=== PATIENT | female | born 1995 | race Caucasian/White ===

== ENCOUNTER 2019-06-19 13:08 | Outpatient (CLI) | payer MEDICAID, SELFPAY ==
--- NOTE | 2019-06-19 | US_ITS ---
WS: [id number] EARLY OBSTETRICAL ULTRASOUND (<14 WEEKS). HISTORY: SUPERVISION, NORMAL PREG, MULTIPAROUS COMPARISON: None available. Single intrauterine gestational sac is identified. Cardiac activity cannot be detected. [place]-rump le ngth measures 0.4 cm which corresponds to a gestation of 6w0d. Normal-appearing yolk sac and amnion d emonstrated. No subchorionic hemorrhage. No free fluid. Normal size ovaries with no mass. Cervix is closed and normal length of 3.6 cm. US/US OB <=14 wk fetus w transvag IMPRESSION: 1. Intrauterine gestational sac with crown-rump length corresponding to a gest ation of 6 weeks and 0 days. 2. No cardiac activity identified at this time. May be due to undetectable hea rt rate due to early gestational age or embryonic demise. Recommend follow-up u ltrasound in one week.
== END 2019-06-19 13:09 | disposition home or self-care (01) ==
PROVIDERS: Family Provider Family Medicine; PCP Family Medicine; Visit Provider Family Medicine
DX: Z34.81 Encounter for supervision of other normal pregnancy, first trimester (principal); Z3A.01 Less than 8 weeks gestation of pregnancy
CPT/HCPCS: 76801; 76817

== ENCOUNTER 2019-06-26 10:12 | Outpatient (CLI) | payer SELFPAY ==
--- NOTE | 2019-06-26 | US_ITS ---
WS: [id number] ULTRASOUND EARLY TECHNIQUE: Transabdominal sonography of the pelvis was performed. Followed by transvaginal sonography to better evaluate the uterus and ovaries. CLINICAL INFORMATION: ABSENT HEART TONES LAST WEEK LMP: 05/08/2019 Beta hCG: Unknown. COMPARISON: Ultrasound June 19, 2019 FINDINGS: UTERUS AND GESTATIONAL SAC Intrauterine gestations: Intrauterine gestational sac with Estimated gestational age: 6w3d [place] rump length (CRL): 0.6 cm. No cardiac activity visualized Subchorionic hemorrhage: None. OVARIES Right ovary: Normal. Left ovary: Normal. FREE FLUID None. US/US OB <=14 wk fetus w transvag IMPRESSION: 1. Gestational sac measuring 6 weeks 3 days with an no heart tones visualized. Recommend short interval follow-up to evaluate viability.
== END 2019-06-26 10:13 | disposition home or self-care (01) ==
LOC: RADWPI 10:15
PROVIDERS: Family Provider Family Medicine; PCP Family Medicine; Visit Provider Family Medicine
DX: O36.8310 Maternal care for abnormalities of the fetal heart rate or rhythm, first trimester, not applicable or unspecified (principal)
CPT/HCPCS: 76801; 76817

== ENCOUNTER 2020-03-11 07:48 | Outpatient (CLI) | payer MEDICAID, SELFPAY ==
--- NOTE | 2020-03-11 07:53 | US_ITS ---
WS: [id number] ULTRASOUND EARLY TECHNIQUE: Transabdominal sonography of the pelvis was performed. Followed by transvaginal sonography to better evaluate the uterus and ovaries. CLINICAL INFORMATION: SUPERVISION NORMAL ,MULTIPAROUS LMP: 12/19/2019 Beta hCG: Unknown. COMPARISON: None. FINDINGS: Cervix measures 4.3 cm UTERUS AND GESTATIONAL SAC Intrauterine gestations: Estimated gestational age: 11w6d. Estimated delivery September 24, 2020 [place] rump length (CRL): 5.2 cm. heart motion: 164 BPM. Subchorionic hemorrhage: None. OVARIES Right ovary: Normal. Left ovary: Normal. FREE FLUID None. US/US OB <= 14 weeks fetus [id number] IMPRESSION: 1. Single live intrauterine with cardiac activity. 2. Estimated gestational age; 11w6d. Estimated delivery September 24, 2020 3. Normal ovaries
== END 2020-03-11 07:49 | disposition home or self-care (01) ==
PROVIDERS: PCP Family Medicine; Visit Provider Family Medicine
DX: Z34.81 Encounter for supervision of other normal pregnancy, first trimester (principal); Z3A.11 11 weeks gestation of pregnancy
CPT/HCPCS: 76801

== ENCOUNTER 2020-05-03 10:45 | Outpatient (CLI) | payer MEDICAID, SELFPAY ==
--- NOTE | 2020-05-03 10:51 | US_ITS ---
WS: [id number] OBSTETRICAL ULTRASOUND COMPLETE HISTORY: ANATOMY COMPARISON: 03/11/2020 Single intrauterine gestation in variable presentation. Cervix is Closed and normal length. Cervical length is 4.9 cm. Normal amount of amniotic fluid surrounds the fetus. Placenta: Anterior, no previa or abruption. Placenta grade 1 Heart: 164 BPM. 4 chambers are identified. The valve plane and the septum are not visualized well. Th e RIGHT and LEFT ventricular outflow tracts appear intact. Anatomy: Intracranial structures and spine are normal. kidneys, stomach and urinary bladd er are unremarkable. Abdominal wall, three-vessel cord and cord insertion site are normal. 4 extremities are present. profile: Unremarkable. Gender: L. measurements: BPD = 4.5 cm = 19w3d HC = 16.9 cm = 19w4d AC = 14.3 cm = 19w4d FL = 3.1 cm = 19w3d EFW: 298 g. Biometry is internally concordant. AGA by ultrasound: 19w4d JOHN by ultrasound: 09/23/2020 US/US OB >= 14 weeks fetus [id number] IMPRESSION: 1. Single intrauterine gestation of 19w4d with an JOHN of 09/23/2020. Appropria te growth since the prior ultrasound. 2. Inadequate evaluation of four-chamber heart. Repeat imaging with attention to the valve plane and the intra-atrial and intraventricular septa recommended. The outflow tracts are normal.
== END 2020-05-03 10:46 | disposition home or self-care (01) ==
LOC: RAD 10:46
PROVIDERS: PCP Family Medicine; Visit Provider Family Medicine
DX: Z36.89 Encounter for other specified antenatal screening (principal); Z3A.19 19 weeks gestation of pregnancy
CPT/HCPCS: 76805

== ENCOUNTER 2020-05-20 14:56 | Outpatient (CLI) | payer MEDICAID, SELFPAY ==
--- NOTE | 2020-05-20 15:09 | US_ITS ---
WS: [id number] ULTRASOUND OB LIMITED TECHNIQUE: Limited ultrasound examination of the fetus. CLINICAL INFORMATION: FOLLOW UP ON HEART COMPARISON: None. FINDINGS: Cervix measures 4.3 cm Single interuterine gestation. presentation is cephalic Placental location is anterior. Placenta grade: 1 Anatomy: Normal 4 chamber view, left ventricular outflow tract, and right ventricular outflow tract s een today. Echogenic foci seen within the left ventricle [place] [id number] IMPRESSION: 1. Normal four-chamber heart view today. Normal ventricular outflow tracts. 2. Echogenic foci seen within the left ventricle. Recommend correlation with m aternal risk factors.
== END 2020-05-20 14:57 | disposition home or self-care (01) ==
LOC: RAD 14:57
PROVIDERS: PCP Family Medicine; Visit Provider Family Medicine
DX: Z34.80 Encounter for supervision of other normal pregnancy, unspecified trimester (principal)
CPT/HCPCS: 76816

== ENCOUNTER 2020-09-09 10:49 | Outpatient (CLI) | payer MEDICAID, SELFPAY ==
--- NOTE | 2020-09-09 10:55 | US_ITS ---
WS: [id number] ULTRASOUND OB LIMITED TECHNIQUE: Limited ultrasound examination of the fetus. CLINICAL INFORMATION: SMALL FOR GESTATION AGE/ALEXY/EFW COMPARISON: May 20, 2020 FINDINGS: Cervix measures 4.6 cm Single interuterine gestation. Placental location is anterior. Placenta grade: 2 heart rate 157 BPM. Anatomy: BDP: 9.2 cm = 37w1d HC: 32.8 cm = 37w2d AC: 35.2 cm = 39w1d FEMUR LENGTH: 7.4 cm = 37w6d Estimated weight: 3468 g EGA by ultrasound: 37w6d JOHN by ultrasound: 09/24/2020 [place] [id number] IMPRESSION: 1. Single intrauterine gestation with cervix measuring 4.6 cm. Cervix is long and closed. 2. Gestational age 37 weeks 6 days with estimated delivery September 24, 2020. 3. Normal amniotic fluid volume. ALEXY 10.2 CM, greater than 5th and below the m edian percentile 4. growth parameters within normal limits. 5. weight 7 lbs. 10 oz. 86 percentile based on gestational age.
== END 2020-09-09 10:50 | disposition home or self-care (01) ==
LOC: US 10:52
PROVIDERS: PCP Family Medicine; Visit Provider Family Medicine
DX: Z36.4 Encounter for antenatal screening for fetal growth retardation (principal); Z3A.37 37 weeks gestation of pregnancy
CPT/HCPCS: 76816

== ENCOUNTER 2020-09-19 03:37 | Inpatient (IN) | payer MEDICAID, SELFPAY ==
[2020-09-19] VITALS (83 sets, daily range): BP systolic 94–148; BP diastolic 51–96; PULSE 82–139; RESP 17–18; TEMP 36.2–37.2; O2SAT 94–99; BMI 26.7
--- NOTE | 2020-09-19 03:33 | PC.NURSE ---
ARMAAN Casarez made aware by this RN of [facility] in active labor to floor. AR RN
[2020-09-19] MEDS: ampicillin 2,000 MG in sodium chloride 0.9% (plus) 50 ML 100 MG IV (04:00)
[2020-09-19] MEDS: dextrose 5%-lactated ringers 1,000 ML 125 ML IV ×2 (04:01→11:06)
[2020-09-19] MEDS: butorphanol 2 mg/mL SDV 1 mL 1 MG IVP (04:01)
[2020-09-19 04:26] LABS: Basophils % 0.3 %; Eosinophils % 0.2 %; Hematocrit 36.4 % (37.0-47.0); Hemoglobin 11.8 g/dL (11.5-15.3); Lymphocytes # 1.2 10^3/uL (0.8-4.8); Lymphocytes % 9.6 %; Mean Corpuscular HGB Conc 32.4 g/dL (30.0-36.0); Mean Corpuscular Hemoglobin 26.3 pg (28.0-34.0); Mean Corpuscular Volume 81.1 fL (81-99); Mean Platelet Volume 12.1 fL (7.4-10.4); Monocytes # 0.8 10^3/uL (0.2-0.9); Monocytes % 6.8 %; Neutrophils # 10.07 10^3/uL (1.8-7.7); Neutrophils % 82.8 %; Nucleated Red Blood Cells % 0 %; Platelet Count 203 10^3/cmm (130-400); Red Blood Count 4.49 10^6/uL (4.1-5.3); Red Cell Distribution Width 14.6 % (12.1-15.1); White Blood Count 12.2 10^3/uL (4.0-10.0)
[2020-09-19] MEDS: lactated ringers 1,000 ML 999 ML IV (04:48)
--- NOTE | 2020-09-19 06:10 | P.ANESASSM_ITS ---
Pre-Anesthetic Assessment Pre-Anesthetic Assessment: Height/Weight: Height 1.7 m Weight 77.564 kg Temp Pulse Resp BP Pulse Ox 97.3 F L 119 H 17 142/93 99 09/19/20 02:13 09/19/20 06:02 09/19/20 03:36 09/19/20 05:58 09/19/20 06:02 Preop Diagnosis: labor pain Proposed Procedure: labor epidural Familial anesthetic complications: none Was Beta Les taken within 24 hours: N/A Was Clonidine taken within 24 hours: N/A Social: Social History: No alcohol and No tobacco Exam: Pre-Anes Outpt Exam: alert, oriented x 3 and clear to auscultation bilaterally Airway: Submandibular: WNL Cervical ROM: WNL MP: 2 History/ROS: No significant history except as noted and No significant complaints Anesthetic Plan: ASA status: 2 Anesthesia: Regional (specify below) Risk of > 500 ml blood loss (7ml/kg in children): No Meds/Allergies Current Medications: Current Medications Generic Name Dose Route Start Last Admin Trade Name Freq PRN Reason Stop Dose Admin Butorphanol Tartra te 1 mg 09/19/20 03:36 09/19/20 04:01 Butorphanol 2 Mg /Ml Sdv 1 Ml IVP 1 mg Q2H PRN Administration SEVERE PAIN Lactated Ringer's 1,000 mls @ 999 m ls/hr 09/19/20 03:36 09/19/20 04:48 Lactated Ringers IV 999 mls/hr .Q1H1M PRN Administration See label comment s Dextrose/Lactated Ringer's 1,000 mls @ 125 m ls/hr 09/19/20 03:45 09/19/20 04:01 Dextrose 5%-Lact ated Ringers IV 125 mls/hr .Q8H DENZEL Administration PFSH Anesthesia Female Reproductive History: : 2 Data Anesthesia CBC & Chem 7: 09/19/20 03:47 Other Labs: Laboratory Results - last 48 hr 09/19/20 03:47 WBC 12.2 H RBC 4.49 Hgb 11.8 Hct 36.4 L MCV 81.1 MCH 26.3 L MCHC 32.4 RDW 14.6 Plt Count 203 MPV 12.1 H Neut % (Auto) 82.8 Lymph % (Auto) 9.6 [place] % (Auto) 6.8 Eos % (Auto) 0.2 Baso % (Auto) 0.3 Neut # (Auto) 10.07 H Lymph # (Auto) 1.2 [place] # (Auto) 0.8 Eos # (Auto) 0.0 Baso # (Auto) 0.0 Nucleated RBC % (auto) 0 Nucleated RBCs # 0.0 Cardiac Studies: No Data to Display Anesthesia Procedures Date of Procedure: 09/19/20 Epidural: Time Out Performed: Yes Consents Signed: Procedure Consent Consent: from patient Lumbar Level: L2-L3 Epidural position: sitting Epidural procedure: sterile prep of area, 1% lidocaine to numb the area, 18 g needle, negative for paresthesia passed, neg for paresthesia, test dose given, 1.5% xylocaine 1:200k epi (3ml), 0.2% Ropivacaine bolus ml (5 ml), L.U.D. no apparent complications and 0.2% Ropiavacaine @ mls/hr (13 ml per hour) Ad ditional Comments: lot [id number] exp 2020-12-12
--- NOTE | 2020-09-19 06:40 | P.HP_ITS ---
Providers/Chief Complaint Admitting Physician: Herman Ibarra MD Primary Care Provider: Herman Ibarra MD Chief Complaint: contractions 3-5 History of Present Illness Arlyn Chris is a 24 year old at 39.2 weeks gestation by LMP consistent with 11-week ultrasound. Her is complicated by prior low- transverse section secondary to arrest of dilation at 9 cm, GBS positive. The patient presented to labor and delivery triage on the morning of 09/19/2020 at approximately 2 AM with concerns for increasing contractions. She began having increased contractions starting at midnight and they were consistent every 3 to 5 minutes, so she presented for further evaluation. Upon presentation she was 4 cm dilated and 70% effaced. She changed to 90% effacement after 1 hour. She was sarah every 2 to 3 minutes. For this reason she was kept for spo ntaneous labor. The patient has requested to have a trial of labor after section. She denies any chest pains, shortness of breath, nausea, vomiting, diarrhea, constipation, leakage of fluid, vaginal bleeding, fever. Medications/Allergies Home Medications Medication Instructions Recorded Confirmed Last Taken Type 09/19/20 Unknown History Allergies Allergy/AdvReac Type Severity Reaction Status Date / Time No Known Allergies Allergy Verified 09/19/20 02:45 PFSH Acute PFSH: Surgical History (Updated 09/19/20 @ 06:44 by Herman Ibarra MD) Previous section Family History (Updated 09/19/20 @ 06:46 by Herman Ibarra MD) Mother Cancer, Onset Age: 48 Breast/Ovarian cancer with metastases to the liver Social History (Updated 09/19/20 @ 06:46 by Herman Ibarra MD) Smoking and tobacco status: never smoked Alcohol intake: never Substance/Drug Use: never Female Reproductive History: : 2 Vitals/I&O/Wt Last Vital Signs Temp 97.3 F L 09/19/20 02:13 Pulse 120 H 09/19/20 06:37 Resp 17 09/19/20 03:36 BP 130/68 09/19/20 06:30 Pulse Ox 99 09/19/20 06:37 Weight last 48 hrs Weight 171 lb Physical Exam Narrative: EXAM NARRATIVE: General: Alert and oriented x3 Eyes: Pupils equal round and reactive to light and accommodation Mouth: Mucous membranes moist, pharynx non-erythematous Cardiac: Regular rate and rhythm without murmurs Lungs: Clear to auscultation bilaterally without wheezes, crackles or rhonchi Abdomen: Soft, non-tender, fundus small for gestational age Extremities: Trace edema in the bilateral lower extremities Data : 09/19/20 03:47 A&P Additional A&P Information The patient is currently doing well. heart tones are in the mid 130s with moderate variability and good accelerations. The patient has been sarah every 3 to 5 minutes and has made good cervical change. The patient has received a laboring epidural. She is comfortable with this. The patient received her first dose of ampicillin at 4 AM. The patient has not needed any augmentation for contractions at this point. I had a lengthy discussion with the patient regarding possible risks of including uterine rupture and its complications in clinic yesterday. We will watch for any signs of complications and proceed appropriately. Overall the patient is doing well and we will proceed with trial of labor after section. Attestations Medical Necessity Statement*: The patient will be here for greater than 2 midnights due to routine intrapartum and management of labor and delivery. Coding Level of Care Code Acute Roll Form Operator for Viri Mark
[2020-09-19] MEDS: ampicillin 1,000 MG in sodium chloride 0.9% (plus) 50 ML 100 MG IV ×2 (07:43→11:40)
--- NOTE | 2020-09-19 14:37 | PM.DELIVERY ---
Delivery Note: Date of delivery: September 19, 2020 Pre-delivery diagnoses: 1. Intrauterine at 39.2 weeks gestation 2. Prior low-transverse section. 3. GBS positive Post-delivery diagnoses: 1. Intrauterine status post vaginal after section at 39.2 weeks gestation 2. History of prior low-transverse section 3. GBS positive 4. Delivery of healthy male weighing 6 pounds 13 ounces with Apgars of 8 and 10 Procedure: Op report anesthesia: Epidural Delivering Physician: Herman Ibarra MD Estimated blood loss (mL): 200 Findings: Delivery of healthy male weighing 6 pounds 13 ounces with Apgars of 8 and 10 Intact placenta with peripheral umbilical cord insertion site Pre-Delivery Course: The patient began having increased contractions on the web content manager of 09/19/2020 and presented to labor delivery triage at approximately 2 AM of the same day. She was making cervical change on her own so she was admitted for spontaneous labor. The patient wished to have a trial of labor after section. We had discussed this in clinic the day before including the possible risks. The patient was started on ampicillin for GBS prophylaxis and received 3 doses prior to delivery. She continued to make change on her own and received a laboring epidural. The patient did not need Pitocin for augmentation of labor. AROM was performed when the patient was approximately 7 cm dilated to augment labor and clear fluid was noted. The patient was complete by approximately 1321 on 09/19/2020. Delivery: The patient began pushing at 1321 on 09/19/2020. The patient pushed well and the infant descended gradually. The infant delivered in the OA position at 1418 on 09/19/2020. There was no nuchal cord. The left shoulder was anterior shoulder and it delivered with ease. The rest of the delivered without complication. The infant's mouth and nose were bulb suctioned by myself. The infant was placed on the mother's chest where the nurses were waiting to care for him. The cord was clamped by myself after approximately 1 minute and the infant's father cut the cord. Cord blood was obtained. The cord was then drained of blood and traction was placed on the umbilical cord. Fundal massage was placed and the placenta delivered without complication at 1425 on 09/19/2020. It was noted to be intact with a peripheral umbilical cord insertion site. The uterus was massaged and the patient's bleeding slowed down gradually. Her uterus was noted to be firm and midline. The cervix was inspected and no lacerations were noted. The vaginal wall was inspected and the patient had bilateral first-degree lacerations on the vaginal wall. These were not bleeding and did not need suturing. Currently both the mother and are doing well. A&P Assessment and plan (1) , delivered: Status: Acute (2) Positive GBS test: Status: Acute Coding Level of Care Code Acute Emergency Crew Supervisor for Chg Fwd Diagnoses , delivered O34.219 Positive GBS test B95.1
[2020-09-19] MEDS: oxytocin 30 UNIT/500 ML BAG 600 UNIT IV (14:43)
[2020-09-19] MEDS: benzocaine-menthol 78 gm Canister 1 SPRAY TOPICAL (15:39)
[2020-09-19] MEDS: ibuprofen 800 mg tablet PO ×2 (15:39→21:02)
[2020-09-19] MEDS: lanolin oint 7 gm 1 APPLIC TOPICAL (15:39)
--- NOTE | 2020-09-19 16:09 | PC.NURSE ---
Chux changed at this time
--- NOTE | 2020-09-19 18:42 | PC.NURSE ---
Patient ambulated to restroom at this time, no dizziness or feelings of being lightheaded.
[2020-09-19] MEDS: docusate sodium 100 mg Capsule PO (18:48)
[2020-09-20 02:06] LABS: Hematocrit 32.2 % (37.0-47.0); Hemoglobin 10.3 g/dL (11.5-15.3); Mean Corpuscular Hemoglobin 26.2 pg (28.0-34.0); Mean Corpuscular Volume 81.9 fL (81-99); Mean Platelet Volume 11.4 fL (7.4-10.4); Platelet Count 162 10^3/cmm (130-400); Red Blood Count 3.93 10^6/uL (4.1-5.3); Red Cell Distribution Width 14.8 % (12.1-15.1); White Blood Count 11.6 10^3/uL (4.0-10.0)
[2020-09-20] MEDS: ibuprofen 800 mg tablet PO (10:16)
[2020-09-20] MEDS: docusate sodium 100 mg Capsule PO (10:16)
[2020-09-20] MEDS: prenatal vitamin Capsule 1 CAP PO (10:16)
[2020-09-20 10:34] VITALS: BP 110/65; PULSE 73
[2020-09-20 10:35] VITALS: RESP 16; TEMP 36.5; O2SAT 98
--- NOTE | 2020-09-20 15:53 | P.DS_ITS ---
Discharge Providers Date of Admission: 09/19/20 03:37 Date of Discharge: September 20, 2020 Attending Provider at Admission: Herman Ibarra MD Attending Provider at Discharge: Herman Ibarra MD Primary Care Provider: Herman Ibarra MD Diagnoses at Discharge Discharge Diagnosis (1) , delivered: Status: Resolved (2) Positive GBS test: Status: Resolved Other Information Additional DC diagnoses/information: 1. Intrauterine status post vaginal after section at 39.2 weeks gestation 2. History of prior low-transverse section 3. GBS positive 4. Delivery of healthy male weighing 6 pounds 13 ounces with Apgars of 8 and 10 Reason for Visit Reason for Visit: contractions 3-5 Hospital Course Hospital Course Pre-Delivery Course: The patient began having increased contractions on the assistant construction superintendent of 09/19/2020 and presented to labor delivery triage at approximately 2 AM of the same day. She was making cervical change on her own so she was admitted for spontaneous labor. The patient wished to have a trial of labor after section. We had discussed this in clinic the day before including the possible risks. The patient was started on ampicillin for GBS prophylaxis and received 3 doses prior to delivery. She continued to make change on her own and received a laboring epidural. The patient did not need Pitocin for augmentation of labor. AROM was performed when the patient was approximately 7 cm dilated to augment labor and clear fluid was noted. The patient was complete by approximately 1321 on 09/19/2020. Delivery: The patient began pushing at 1321 on 09/19/2020. The patient pushed well and the descended gradually. The delivered in the OA position at 1418 on 09/19/2020. There was no nuchal cord. The left shoulder was anterior shoulder and it delivered with ease. The rest of the delivered without complication. The infant's mouth and nose were bulb suctioned by myself. The was placed on the mother's chest where the nurses were waiting to care for him. The cord was clamped by myself after approximately 1 minute and the infant's father cut the cord. Cord blood was obtained. The cord was then drained of blood and traction was placed on the umbilical cord. Fundal massage was placed and the placenta delivered without complication at 1425 on 09/19/2020. It was noted to be intact with a peripheral umbilical cord insertion site. The uterus was massaged and the patient's bleeding slowed down gradually. Her uterus was noted to be firm and midline. The cervix was inspected and no lacerations were noted. The vaginal wall was inspected and the patient had bilateral first-degree lacerations on the vaginal wall. These were not bleeding and did not need suturing. Postdelivery course: The patient has done well . Her bleeding is decreasing well. Her pain is well controlled. She is ambulating, voiding, passing gas and tolerating food by mouth. She is showing no signs of complications. We will plan to discharge home today. She is to follow-up with me at 6 weeks or sooner if needed. Physical Exam Narrative: EXAM NARRATIVE: General: Alert and oriented x3 Cardiac: Regular rate and rhythm without murmurs Lungs: Clear to auscultation bilaterally without wheezes, crackles or rhonchi Abdomen: Soft, non-tender, fundus is firm and 2 cm below the umbilicus. Extremities: Trace edema in the bilateral lower extremities Urinary Catheter Management^: Kraft: Cath Placed During This Visit: yes, but has since been removed by the nurse Reason for Continuing Indwelling Catheter: Decision to DC Catheter Urinary Catheter Date of Insertion: 09/19/20 Urinary Catheter Time of Insertion: 06:30 Date Urinary Catheter Removed: 09/19/20 Time Urinary Catheter Discontinued: 13:15 Discharge Data Data Completed and Pending: Labs from last 24 hours 09/20/20 02:00 WBC 11.6 H RBC 3.93 L Hgb 10.3 L Hct 32.2 L MCV 81.9 MCH 26.2 L MCHC 32.0 RDW 14.8 Plt Count 162 MPV 11.4 H Vitals: Last Vital Signs Temp 97.2 F L 09/19/20 22:44 Pulse 73 09/20/20 10:34 Resp 18 09/19/20 18:43 BP 110/65 09/20/20 10:34 Pulse Ox 99 09/19/20 06:37 Discharge Plan Discharge Patient Disposition: Home Condition: Stable Prescriptions: New ibuprofen 800 mg Tablet 800 mg PO TID Qty: 30 RF: 0 ferrous sulfate 325 mg (65 mg iron) tablet 325 mg PO BID Qty: 30 RF: 0 Continued RF: 0 Discharge Orders: Discharge Order (Routine); Ordered 09/20/20 Ordered By: Herman Ibarra Referrals: Herman Ibarra MD [Primary Care Provider] - 6 Weeks (* Please call first thing Wednesday morning to schedule your 6 week follow up appointment with Dr. Ibarra) Discharge Diet: Usual diet Discharge Activity: Limit activity as instructed Patient Instructions: Depression (GEN), Vaginal Delivery (DC), Pre- eclampsia and Eclampsia (DC), Bleeding (DC), OB Discharge Report, OB Anesthesia Instructions, OB Food/Drug Interaction Guide, Opioid Safety, OB Home Care, OB Proud Parent Packet Activity Restrictions/Additional Instructions: Nothing per vagina for 6 weeks. Discharge Attestations Time Spent in Discharge Care*: greater than 30 min Quality Metrics Clinical Quality Measures During this hospital stay, did patient experience: None Coding Level of Care Code Acute Chg FW DC note Diagnoses , delivered O34.219 Positive GBS test B95.1
[2020-09-20 17:12] VITALS: BP 117/70; PULSE 75; PULSE 83; O2SAT 99
== END 2020-09-20 17:30 | disposition home or self-care (01) | DRG 806 ==
LOC: OPOB 03:40 → OBGYN 03:40
PROVIDERS: Admitting Provider Family Medicine; PCP Family Medicine; Visit Provider Family Medicine
DX: O34.211 Maternal care for low transverse scar from previous cesarean delivery (principal); O71.4 Obstetric high vaginal laceration alone; Z37.0 Single live birth; O99.824 Streptococcus B carrier state complicating childbirth; Z3A.39 39 weeks gestation of pregnancy
CPT/HCPCS: 36415; 51702; 59025; 59409; 85025; 85027; 99211; J0290; J0595; J2795

== ENCOUNTER → 2022-08-11 08:48 | Outpatient (BNVA) | payer MEDICAID, SELFPAY | PROVIDERS: PCP Family Medicine; Visit Provider Clinical Nurse Specialist Adult Health | DX: R59.1 Generalized enlarged lymph nodes (principal); B34.9 Viral infection, unspecified | CPT/HCPCS: 80053; 81000; 85025; 85651; 86140; 86308; 87086 ==

== ENCOUNTER 2022-08-16 19:47 | Emergency (ER) | payer MEDICAID, SELFPAY ==
[2022-08-16 19:52] VITALS: BP 144/95; PULSE 104; RESP 14; TEMP 36.4; O2SAT 100; BMI 21.9
--- NOTE | 2022-08-16 20:25 | ECG_ITS ---
[facility] Test Date: 2022-08-16 Pat Name: Arlyn Chris Department: Room: Gender: Female Silver Plater: : 1995 Requested By: Mercy Green Order Number: [id number] Adriel MD: Lazaro Grossman M.D. Measurements Intervals [place] Rate: 98 P: 54 [place]: 147 QRS: 57 QRSD: 109 T: 2 QT: 350 QTc: 448 Interpretive Statements SINUS RHYTHM INCOMPLETE RIGHT BUNDLE BRANCH BLOCK [90+ ms QRS DURATION, TERMINAL R IN V1/V2, 40+ ms S IN I/aVL/V4/V5/V6] MODERATE T-WAVE ABNORMALITY, CONSIDER ANTERIOR ISCHEMIA [-0.1+ mV T-WAVE IN V3/V4] No previous ECG available for comparison Electronically Signed On 08-16-2022 23:09:01 CDT by Lazaro Grossman M.D. [id number]
--- NOTE | 2022-08-16 20:25 | XRR_ITS ---
PROCEDURE INFORMATION: Exam: XR Chest Exam date and time: 08/16/2022 8:50 PM Age: 26 years old Clinical indication: Other: AMS; Additional info: AMS, altered, unknown cause TECHNIQUE: Imaging protocol: Radiologic exam of the chest. Views: 1 view. COMPARISON: No relevant prior studies available. FINDINGS: Lungs: Unremarkable. No consolidation. Pleural spaces: Unremarkable. No pleural effusion. No pneumothorax. Heart/Mediastinum: Unremarkable. No cardiomegaly. Bones/joints: Unremarkable. XR/XR chest 1V [id number] IMPRESSION: No acute findings.
--- NOTE | 2022-08-16 20:50 | W.ED.AMS ---
HPI - Altered Mental Status General: Chief Complaint: Altered Mental Status Stated Complaint: numbness right side, blurred vision slurred speech Time Seen by Provider: 08/16/22 20:06 Source: patient and family Mode of arrival: ambulatory Limitations: no limitations History of Present Illness: Patient presents to the emergency department today accompanied by family for evaluation treatment of spots on her lower legs and general illness. Family also indicates concern for episodes of confusion. From what I understand, patient has not been feeling well for approximately 2 weeks. Approximately 10 days ago she was seen at a walk-in clinic where they told her she had leukocytes in her urine and started treatment for urinary tract infection. Unsure of what antibiotic treatment was started. Patient was then seen a few days later for continued symptoms by her primary care doctor where they indicated concern for potential tickborne illness. They state her blood inflammation levels were elevated. Patient was started on doxycycline at that time. Patient has been on doxycycline for approximately 5 days but, has developed tender, red spots on her lower legs bilaterally. Patient complains of headache but no fevers. She denies any major joint aches. Patient has been taking her doxycycline as prescribed. Family states they are concerned because she was sending them text messages that did not make much sense. Patient admits she feels cloudy and answers many of her questions with I do not know . Chart review shows she was seen on 08/06 at her primary care office for lymphadenopathy-cervical, axillary, and inguinal. Patient's evaluation was otherwise unremarkable. She was seen again on 08/11 for continued tender lymph nodes. Patient denied cat scratch, tick bites or recent travel. They did check mononucleosis which was negative at that time. Review of Systems General: Reports: 10 or more systems reviewed and unremarkable except in HPI and below PFSH ED PFSH: Medical History Healthy adult Surgical History Previous section Family History Mother Cancer, Onset Age: 48 Breast/Ovarian cancer with metastases to the liver Social History Smoking and tobacco status: never smoked Alcohol intake: never Substance/Drug Use: never Physical Exam Const: COMMON NORMALS: no acute distress, patient oriented x3 and alert HENMT: COMMON NORMALS: normocephalic, hearing grossly normal bilaterally, external ears normal, Normal external nose present, moist oral mucous membranes and dentition normal HEAD & SCALP: normocephalic NOSE: Normal external nose present EXTERNAL EAR: Yes external ears normal Eye: COMMON NORMALS: Equal, round and reactive pupils present, EOMs intact bilaterally, conjunctivae normal and no scleral icterus CONJUNCTIVA: Yes conjunctivae normal PUPIL: Yes Equal, round and reactive pupils present Neck/C-Spine: COMMON NORMALS: full ROM, no meningeal signs and no JVD Resp: COMMON NORMALS: normal respiratory effort, No retractions, No use of accessory muscles and clear to auscultation bilaterally AUSCULTATION: clear to auscultation bilaterally Cardio: COMMON NORMALS: no JVD, regular rate and regular rhythm RATE: regular rate RHYTHM: regular rhythm GI: COMMON NORMALS: Normal to inspection, nondistended, normoactive bowel sounds present, Soft to palpation and non-tender PALPATION: Yes Soft to palpation : COMMON NORMALS: Yes no CVA tenderness BLADDER/KIDNEY EXAM: Yes no CVA tenderness Back/Pelvis: COMMON NORMALS: no CVA tenderness and thoraco-lumbar ROM normal Extremity: NARRATIVE EXTREMITY EXAM: Patient demonstrates ability to move all extremities independently. She has ability to flex and extend at all joints. Patient demonstrates capability to grasp in the upper extremities bilaterally. Patient is weightbearing and ambulatory here in the emergency department. Neuro: COMMON NORMALS: patient oriented x3 SENSORIUM/ORIENTATION: Yes alert MENINGEAL SIGNS: Yes no meningeal signs Psych: COMMON NORMALS: Normal thought process present and speech normal ATTITUDE: Yes calm and Yes evasive SPEECH: Yes normal speech MOOD & AFFECT: Yes Flat affect present THOUGHT PROCESS: Normal thought process present THOUGHT CONTENT: Yes Normal thought content present ATTENTION/CONCENTRATION: Yes attention grossly intact and Yes concentration grossly intact MEMORY/COGNITION: Yes memory grossly intact (Provides dates and times of progression of illness history) INSIGHT: Good insight present (Psych) Skin: NARRATIVE SKIN EXAM: Patient has dozens of brown/purple circular lumps on the lower extremities bilaterally. It affects from the knees down. Primarily anterior shins. Each of these are slightly raised and anywhere from the size of a dime to a nickel. They are tender to touch. They are somewhat firm underneath but no fluctuance. No ulcerations or draining. Spots nena. Course Vital Signs: Vital signs: Vital Signs Temperature 97.5 F L 08/16/22 19:52 Pulse Rate 95 08/16/22 22:42 Respiratory Rate 14 08/16/22 22:42 Blood Pressure 132/95 08/16/22 22:42 Pulse Oximetry 98 08/16/22 22:42 Oxygen Delivery Me thod Room Air 08/16/22 22:42 MDM - Altered Mental Status Medical Decision Making Lab work today shows no signs of an elevated white blood cell count. Her inflammatory markers were generally unremarkable and urinalysis was negative for concerns of leukocytes or any infection. Patient's initial evaluation indicated no acute concern for [place] spotted fever as it was not a vascular rash on the lower extremities. Patient is already on doxycycline for tickborne illnesses and encouraged her to continue as prescribed. Initial evaluation was also suspicious for an erythema nodosum. I did request a second opinion by Dr. Sadlivar who after seeing and evaluating patient at bedside, agrees that this is most likely erythema nodosum. I was notified by the nurse that during her evaluation the patient was indicating she could not feel her right leg. Patient did not indicate any type of sensation loss during her evaluation with me and, seem to be able to feel the palpation of the lumps on her right leg during her exam. Patient is also able to stand and ambulate. Upon my reinspection to her room she was found to be sitting upright with her knees brought to her chest. Dr. Saldivar also confirms that during his evaluation patient showed no signs of any deficit to any of her extremities and did not appreciate any altered mental state. She also answered some questions during my HPI with i dont know but other times was able to correct family regarding specific dates, times and symptoms of her illness course. Patient was treated with NSAIDs and 1 dose of [place] here for complaints of body aches and pain. Patient will be discharged on Naproxen with request to follow-up with primary care this week. Explained that this usually last for several weeks and she will need chronic, recurrent follow-up for this condition. Return precautions given and discussed 05/10 access to the ER. Differential Diagnosis Likely alcoholic intoxication, altered mental status, hypoglycemia, hyponatremia and sepsis (UTI/pylo, RMSF, erythema nodosum) Lab Data 08/16/22 20:45 08/16/22 20:45 Radiology Impressions Chest X-Ray 08/16/22 20:25 IMPRESSION: No acute findings. Laboratory Results WBC 5.3 10^3/uL (4.0-10.0) 08/16/22 20:45 RBC 4.38 10^6/uL (4.1-5.3) 08/16/22 20:45 Hgb 12.3 g/dL (11.5-15.3) 08/16/22 20:45 Hct 37.1 % (37.0-47.0) 08/16/22 20:45 MCV 84.7 fl (81-99) 08/16/22 20:45 MCH 28.1 pg (28.0-34.0) 08/16/22 20:45 MCHC 33.2 g/dL (30.0-36.0) 08/16/22 20:45 RDW 11.5 % (12.1-15.1) L 08/16/22 20:45 Plt Count 373 10^3/cmm (130-400) 08/16/22 20:45 MPV 9.6 fL (7.4-10.4) 08/16/22 20:45 Neut % (Auto) 61.7 % 08/16/22 20:45 Lymph % (Auto) 25.4 % 08/16/22 20:45 [place] % (Auto) 8.5 % 08/16/22 20:45 Eos % (Auto) 3.8 % 08/16/22 20:45 Baso % (Auto) 0.4 % 08/16/22 20:45 Neut # (Auto) 3.29 10^3/uL (1.8-7.7) 08/16/22 20:45 Lymph # (Auto) 1.4 10^3/uL (0.8-4.8) 08/16/22 20:45 [place] # (Auto) 0.5 10^3/uL (0.2-0.9) 08/16/22 20:45 Eos # (Auto) 0.2 10^3/uL (0.0-0.8) 08/16/22 20:45 Baso # (Auto) 0.0 10^3/uL (0.0-0.1) 08/16/22 20:45 Nucleated RBC % (auto) 0 % 08/16/22 20:45 Nucleated RBCs # 0.0 /100WBC 08/16/22 20:45 ESR 20 mm/hr (0-15) H 08/16/22 20:45 Sodium 137 mmol/L (136-145) 08/16/22 20:45 Potassium 3.4 mmol/L (3.5-5.1) L 08/16/22 20:45 Chloride 102 mmol/L (98-107) 08/16/22 20:45 Carbon Dioxide 23 mmol/L (22-29) 08/16/22 20:45 Anion Gap 15.4 (5-19) 08/16/22 20:45 BUN 12 mg/dL (6-20) 08/16/22 20:45 Creatinine 0.7 mg/dL (0.5-0.9) 08/16/22 20:45 GFR Calculation 102.8 mL/min (90-130) 08/16/22 20:45 Glucose 94 mg/dL (65-115) 08/16/22 20:45 Calculated Osmolality 284 mOsm/kg (285-295) L 08/16/22 20:45 Lactic Acid 2.0 mmol/L (0.5-2.2) 08/16/22 20:45 Calcium 8.9 mg/dL (8.5-10.5) 08/16/22 20:45 Total Bilirubin 0.2 mg/dL (0.15-1.2) 08/16/22 20:45 AST 21 U/L (0-32) 08/16/22 20:45 ALT 28 U/L (0-33) 08/16/22 20:45 Alkaline Phosphatase 62 U/L (35-105) 08/16/22 20:45 C-Reactive Protein 7.8 mg/L (0.0-4.9) H 08/16/22 20:45 Total Protein 7.0 g/dL (6.6-8.7) 08/16/22 20:45 Albumin 3.4 g/dL (3.5-5.2) L 08/16/22 20:45 Globulin 3.6 g/dL (1.3-4.6) 08/16/22 20:45 Procalcitonin 0.11 ng/mL (0-0.5) 08/16/22 20:45 HCG, Qual Negative (Negative) 08/16/22 21:10 Urine Color Yellow (Yellow) 08/16/22 21:10 Urine Appearance Clear (CLEAR) 08/16/22 21:10 Urine pH 7 (5-7) 08/16/22 21:10 Ur Specific [place] 1.010 (1.005-1.030) 08/16/22 21:10 Urine Protein Neg (Negative) 08/16/22 21:10 Urine Glucose (UA) Norm (Normal) 08/16/22 21:10 Urine Ketones Negative (Negative) 08/16/22 21:10 Urine Blood Neg (Negative) 08/16/22 21:10 Urine Nitrate Negative (Negative) 08/16/22 21:10 Urine Bilirubin Neg (Negative) 08/16/22 21:10 Urine Urobilinogen Norm mg/dL (Negative) 08/16/22 21:10 Ur Leukocyte Esterase Negative (Negative) 08/16/22 21:10 Urine Opiates Screen Negative ng/mL (Negative) 08/16/22 21:10 Ur Barbiturates Screen Negative ng/mL (Negative) 08/16/22 21:10 Ur Phencyclidine Scrn Negative ng/mL (Negative) 08/16/22 21:10 Ur Amphetamines Screen Negative ng/mL (Negative) 08/16/22 21:10 U Benzodiazepines Scrn Negative ng/mL (Negative) 08/16/22 21:10 Urine Cocaine Screen Negative ng/mL (Negative) 08/16/22 21:10 U Marijuana (THC) Screen Negative ng/mL (Negative) 08/16/22 21:10 Ethyl Alcohol < 10 mg/dL (0-10) 08/16/22 20:45 Discharge Plan Discharge Patient Disposition: Home Clinical Impression: Erythema nodosum Condition: Stable Prescriptions: New naproxen 500 mg tablet 500 mg PO BID PRN (Reason: pain) Qty: 20 0RF No Action desogestrel-ethinyl estradiol [Enskyce] 0.15-0.03 mg tablet 1 tab PO DAILY doxycycline hyclate 100 mg tablet 100 mg PO BID Qty: 28 0RF ibuprofen 800 mg Tablet 800 mg PO TID Qty: 30 0RF Discharge Orders: Discharge ED (Routine); Ordered 06/04/23 Ordered By: Mercy Bernard Referrals: Herman Ibarra MD [Primary Care Provider] - Discharge Diet: Usual diet Discharge Activity: Increase activity as tolerated Activity Restrictions/Additional Instructions: Extensive lab work was performed today. You show no signs of elevated white blood cell count concerning for bacterial infection. You show no signs of anemia. Inflammatory markers are minimally outside of normal range today. Your urinalysis reveals no signs of any white blood cells or infection at this time. We did send off a tick panel but, as this test is usually run through the [facility], can take several days to get back. The emergency room physician today agrees your presentation does fit that of erythema nodosum. This can develop for various reasons but, given your 2 weeks of recent illness, think yours may have come on due to viral illness. I have given you an informational handout from one of her medical resources regarding erythema nodosum. Treatment right now will be limited to NSAIDs as further treatment for pain needs to come from primary care due to the fact that requires continued monitoring or referral to dermatology. We do recommend reaching out to your primary care office first thing in the morning and getting a follow-up appointment this week as you will most likely need recurrent evaluations until your symptoms resolve. Coding Level of Care Code ED [employer] for [employer]
[2022-08-16 21:09] LABS: Erythrocyte Sedimentation Rate 20 mm/hr (0-15)
[2022-08-16 21:11] LABS: Basophils % 0.4 %; Eosinophils # 0.2 10^3/uL (0.0-0.8); Eosinophils % 3.8 %; Hematocrit 37.1 % (37.0-47.0); Hemoglobin 12.3 g/dL (11.5-15.3); Lymphocytes # 1.4 10^3/uL (0.8-4.8); Lymphocytes % 25.4 %; Mean Corpuscular HGB Conc 33.2 g/dL (30.0-36.0); Mean Corpuscular Hemoglobin 28.1 pg (28.0-34.0); Mean Corpuscular Volume 84.7 fl (81-99); Mean Platelet Volume 9.6 fL (7.4-10.4); Monocytes # 0.5 10^3/uL (0.2-0.9); Monocytes % 8.5 %; Neutrophils # 3.29 10^3/uL (1.8-7.7); Neutrophils % 61.7 %; Nucleated Red Blood Cells % 0 %; Platelet Count 373 10^3/cmm (130-400); Red Blood Count 4.38 10^6/uL (4.1-5.3); Red Cell Distribution Width 11.5 % (12.1-15.1); White Blood Count 5.3 10^3/uL (4.0-10.0)
[2022-08-16 21:19] LABS: Alanine Aminotransferase 28 U/L (0-33); Albumin Level 3.4 g/dL (3.5-5.2); Alkaline Phosphatase 62 U/L (35-105); Anion Gap 15.4 (5-19); Aspartate Amino Transferase 21 U/L (0-32); Blood Urea Nitrogen 12 mg/dL (6-20); C Reactive Protein 7.8 mg/L (0.0-4.9); Calcium 8.9 mg/dL (8.5-10.5); Carbon Dioxide 23 mmol/L (22-29); Chloride 102 mmol/L (98-107); Globulin 3.6 g/dL (1.3-4.6); Glomerular Filtration Rate 102.8 mL/min (90-130); Glucose 94 mg/dL (65-115); Osmolality Calculated 284 mOsm/kg (285-295); Potassium 3.4 mmol/L (3.5-5.1); Sodium 137 mmol/L (136-145); Total Bilirubin 0.2 mg/dL (0.15-1.2)
[2022-08-16 21:26] LABS: Procalcitonin 0.11 ng/mL (0-0.5)
[2022-08-16 21:28] LABS: Alcohol Level < 10 mg/dL (0-10)
[2022-08-16 21:32] LABS: HCG Qualitative Urine. Negative (Negative)
[2022-08-16] MEDS: sodium chloride 0.9% 1,000 ML 999 ML IV (21:44)
[2022-08-16] MEDS: ketorolac 30 mg/mL INJ IVP (21:45)
[2022-08-16 21:56] VITALS: BP 140/106; PULSE 98; RESP 14; O2SAT 98
[2022-08-16 22:09] LABS: Add Urine Microscopic? NO; Charge for UA Resulting for Rev
[2022-08-16 22:27] LABS: Bilirubin Urine Neg (Negative); Blood Urine Neg (Negative); Glucose Urine UA Norm (Normal); Ketones Urine Negative (Negative); Leukocyte Esterase Urine Negative (Negative); Nitrate Urine Negative (Negative); Protein Urine Neg (Negative); Urine Appearance Clear (CLEAR); Urine Color Yellow (Yellow); Urobilinogen Urine Norm (Negative); pH Urine 7 (5-7)
[2022-08-16 22:40] LABS: Amphetamines Screen Urine Negative (Negative); Barbiturates Screen Urine Negative (Negative); Benzodiazepines Screen Urine Negative (Negative); Cocaine Screen Urine Negative (Negative); Opiate Screen Urine Negative (Negative); PCP Screen Urine Negative (Negative); THC Screen Urine Negative (Negative)
[2022-08-16] MEDS: HYDROcodone-acetaminophen 5-325 mg Tablet 1 TAB PO (22:41)
[2022-08-16 22:42] VITALS: BP 132/95; PULSE 95; RESP 14; O2SAT 98
[2022-08-16 23:58] VITALS: BP 136/93; PULSE 86; RESP 14; TEMP 37.2; O2SAT 100
[2022-08-18 14:45] LABS: Lyme AB Screen <0.90 index
[2022-08-25 16:59] LABS: RMSF IGG NOT DETECTED; RMSF IGM NOT DETECTED
[2022-08-25 21:53] LABS: E. Chaffeensis AB IGG <1:64; E. Chaffeensis AB IGM <1:20
== END 2022-08-17 00:01 | disposition home or self-care (01) ==
PROVIDERS: Emergency Provider Physician Assistant; PCP Family Medicine
DX: L52 Erythema nodosum (principal)
CPT/HCPCS: 36415; 71045; 80053; 80306; 80307; 81003; 81025; 83605; 84145; 85025; 85651; 86140; 86618; 86666; 86757; 87040; 93005; 96374; 99285; J1885; J7030

== ENCOUNTER 2022-08-24 11:47 | Outpatient (CLI) | payer MEDICAID, SELFPAY ==
--- NOTE | 2022-08-24 12:00 | MR_ITS ---
WS: [id number] MRI HEAD WITH CONTRAST TECHNIQUE: Sagittal T1, T2 axial, T2 axial FLAIR, axial susceptibility weighted imaging, axial diffus ion weighted images, and coronal T2 images were obtained. Pre and post-T1 axial and post T1 coronal i mages. ADC and FSPGR images. CLINICAL INFORMATION: Stroke like symptoms - weakness/numbness right side COMPARISON: None. FINDINGS: No evidence of restricted diffusion to suggest acute ischemia. Ventricular system and basal cisterns are patent. No suspicious intracranial signal abnormalities. Normal vega-white differentiation. No ev idence of mass or mass effect. Normal posterior fossa. Normal vascular flow voids at the skull base. No extra-axial fluid collections. Paranasal sinuses and mastoid air cells are well aerated. No hemosi sadia on susceptibly weighted images. Normal optic chiasm and pituitary infundibulum. No abnormal intracranial enhancement. Normal visualiz ed dural venous sinuses MR/MR head wo/w con [id number] IMPRESSION: 1. No evidence of restricted diffusion to suggest acute ischemia. 2. No suspicious intracranial signal abnormalities. 3. Normal optic chiasm and pituitary infundibulum. 4. No abnormal gadolinium enhancement. 5. Paranasal sinuses and mastoid air cells well aerated. 6. No other suspicious findings.
[2022-08-24] MEDS: gadobenate dimeglumine 20 mL vial IV (12:37)
== END 2022-08-24 11:48 | disposition home or self-care (01) ==
PROVIDERS: PCP Family Medicine; Visit Provider Family Medicine
DX: R51.9 Headache, unspecified (principal); R53.1 Weakness
CPT/HCPCS: 70553; A9577

== ENCOUNTER → 2022-09-03 09:12 | Outpatient (BNVA) | payer MEDICAID, SELFPAY | PROVIDERS: PCP Family Medicine; Visit Provider Family Medicine | DX: M25.50 Pain in unspecified joint (principal); R30.0 Dysuria; Z51.81 Encounter for therapeutic drug level monitoring; R53.1 Weakness; R59.1 Generalized enlarged lymph nodes; M25.561 Pain in right knee; M25.562 Pain in left knee | CPT/HCPCS: 81000; 85025; 85651; 86038; 86141; 86431; 87086 ==

== ENCOUNTER → 2023-09-21 16:35 | Outpatient (BNVA) | payer SELFPAY | PROVIDERS: PCP Family Medicine; Visit Provider Emergency Medicine | DX: M79.671 Pain in right foot (principal) | CPT/HCPCS: 73630 ==

== ENCOUNTER → 2024-02-09 09:53 | Outpatient (BNVA) | payer SELFPAY | PROVIDERS: PCP Family Medicine; Visit Provider Family Medicine | DX: Z01.419 Encounter for gynecological examination (general) (routine) without abnormal findings (principal) | CPT/HCPCS: 87624 ==